=== PATIENT | female | born 1960 | race Caucasian/White ===

== ENCOUNTER 2018-05-17 18:31 | Emergency (ER) | payer BC ==
[~2018-05-17] VITALS: Ht 162.6 cm; Wt 86.2 kg
[2018-05-17] MEDS ORDERED: methylPREDNISolone SOD SUCC 125 MG/2 ML VIAL ONE (18:51)
[2018-05-17] MEDS ORDERED: FAMOTIDINE. 20 MG/2 ML VIAL IV ONE (18:52)
[2018-05-17] MEDS ORDERED: EPINEPHRINE 1 MG/1 ML AMP ONE (19:05)
[2018-05-17] MEDS ORDERED: PRED5DRO16 RIGHTEYE (19:08)
[2018-05-17] MEDS ORDERED: LATA2.5D7 RIGHTEYE (19:08)
[2018-05-17] MEDS ORDERED: DORZ10DR11 RIGHTEYE (19:08)
[2018-05-17] MEDS: EPINEPHRINE 1 MG/1 ML AMP SQ ONE (19:08)
[2018-05-17] MEDS ORDERED: DOXY100C2 PO (19:08)
[2018-05-17] MEDS ORDERED: LEVO88TA5 PO (19:08)
[2018-05-17] MEDS ORDERED: DIPH25CA83 PO (19:08)
[2018-05-17] MEDS ORDERED: NETA2.5D OP (19:08)
[2018-05-17] MEDS: methylPREDNISolone SOD SUCC 125 MG/2 ML VIAL IV ONE (19:10)
[2018-05-17] MEDS: FAMOTIDINE. 20 MG/2 ML VIAL IV ONE (19:12)
--- NOTE | 2018-05-17 19:54 | NUR ---
IV removed. Catheter intact and site benign. Pressure and 4x4 gauze applied to site. No bleeding noted.
--- NOTE | 2018-05-17 19:55 | NUR ---
Patient discharged to home in stable conditon. Written and verbal after care instructions given. Patient verbalizes understanding of instructions. Pt states she feels much better.
[2018-05-17 19:56] VITALS: BP 133/81
== END 2018-05-17 20:03 | disposition home or self-care (01) ==
LOC: ER 18:34
DX: L29.9 Pruritus, unspecified (principal); R07.0 Pain in throat; T38.0X5A Adverse effect of glucocorticoids and synthetic analogues, initial encounter; Z88.2 Allergy status to sulfonamides; Z88.5 Allergy status to narcotic agent; Z88.1 Allergy status to other antibiotic agents; Z79.899 Other long term (current) drug therapy; Z79.2 Long term (current) use of antibiotics; Y92.89 Other specified places as the place of occurrence of the external cause
CPT/HCPCS: 96372; 96374; 99283; J0171; J3490; A4663; J2930; J7030